=== PATIENT | male | born 1975 | race Two or more races ===

== ENCOUNTER 2017-03-20 07:30 | Day surgery (SDC) | payer OTHER ==
[2017-03-20] MEDS ORDERED: ceFAZolin 1GM/50ML 50 ML IV ONE (08:12)
[2017-03-20] MEDS ORDERED: NEOMYCIN-BACITRACIN-POLYM 15GM TOP OINT TOP ONE (12:36)
[2017-03-20] MEDS ORDERED: BUPIVACAINE 0.75% INJ 10ML MPV SDV IJ ONE (12:36)
[2017-03-20 13:52] VITALS: BP 134/89
== END 2017-03-20 13:59 | disposition home or self-care (01) ==
LOC: SUR 07:30
PROVIDERS: ATTEND Podiatrist Foot & Ankle Surgery
DX: M72.2 Plantar fascial fibromatosis (principal); E11.9 Type 2 diabetes mellitus without complications; I25.2 Old myocardial infarction
CPT/HCPCS: 28060; 82962; J0690; J3490; L3260; V2790